=== PATIENT | female | born 1990 ===

== ENCOUNTER 2020-02-07 13:16 | Outpatient (CLI) | payer SELFPAY ==
[2020-02-07] MEDS ORDERED: LACTATED RINGERS 500 ML IV ONE (13:43)
[2020-02-07 15:40] VITALS: BP 121/58
--- NOTE | 2020-02-07 16:23 | Ultrasound Report ---
ULTRASOUND OBSTETRIC LIMITED ULTRASOUND BIOPHYSICAL PROFILE INDICATION / CLINICAL INFORMATION: well being. COMPARISON: None available. FINDINGS: BREATHING MOVEMENT = 2 GROSS BODY MOVEMENT = 2 TONE = 2 QUALITATIVE AMNIOTIC FLUID VOLUME = 2 TOTAL BIOPHYSICAL SCORE = 8/8 AMNIOTIC FLUID INDEX (cm) = 9.8 PRESENTATION: Cephalic. HEART RATE (beats per minute): 147 ADDITIONAL FINDINGS: None. IMPRESSION: 1. Biophysical Score = 8/8 Signer Name: Justin Hull MD Signed: 02/07/2020 4:19 PM Workstation Name: [id number]
== END 2020-02-07 16:53 | disposition home or self-care (01) ==
LOC: APU 13:16 → TRG 13:16 → APU 13:17 → TRG 16:53
PROVIDERS: ATTEND Obstetrics & Gynecology
DX: Z3A.37 37 weeks gestation of pregnancy (principal); O36.8130 Decreased fetal movements, third trimester, not applicable or unspecified
CPT/HCPCS: 59025; 76815; 76819; 82962